=== PATIENT | male | born 1955 | race Caucasian/White ===

== ENCOUNTER 2019-02-10 05:53 | Inpatient (IN) | payer OTHER ==
[~2019-02-10] VITALS: Ht 180.3 cm; Wt 92.1 kg
[2019-02-10] VITALS (38 sets, daily range): BP systolic 58–152; BP diastolic 43–86; PULSE 69–128; RESP 11–25; Ht 180.3 cm; Wt 92.1 kg
[2019-02-10] MEDS ORDERED: BUPIVACAINE 0.25%/EPI (MDV) 50 ML VIAL INJ ONE (07:09)
[2019-02-10] MEDS ORDERED: GELATIN SIZE 100 SPONGE ONE (07:09)
[2019-02-10] MEDS ORDERED: THROMBIN 5000 UNIT (RECOTHROM) VIAL ONE ×2 (07:09→12:44)
[2019-02-10] MEDS ORDERED: POLYMYXIN/BACITRACIN 1L IRRIG ONE (07:09)
[2019-02-10] MEDS ORDERED: HEPARIN 1000 UNITS/ML 10 ML INJ ONE (07:09)
[2019-02-10] MEDS ORDERED: LACTATED RINGER'S 1,000 ML IV SCH (07:30)
[2019-02-10] MEDS ORDERED: LIDOCAINE 2% (SDV) 5 ML INJ ONE (07:49)
[2019-02-10] MEDS ORDERED: PROPOFOL 20 ML ONE (07:49)
[2019-02-10] MEDS ORDERED: ROCURONIUM 50 MG INJ ONE ×2 (07:49→08:00)
[2019-02-10] MEDS ORDERED: DESFLURANE 15 MIN ONE (07:49)
[2019-02-10] MEDS ORDERED: CEFAZOLIN 1 GM INJ ONE ×2 (08:00→14:43)
[2019-02-10] MEDS ORDERED: HYDROmorphONE 1 MG/5 ML IV SYRINGE IV PRN ×3 (08:00)
[2019-02-10] MEDS ORDERED: ONDANSETRON 4 MG INJ ONE (08:00)
[2019-02-10] MEDS ORDERED: DEXAMETHASONE 4 MG/ML 5 ML INJ ONE (08:00)
[2019-02-10] MEDS ORDERED: HEMOSTATIC MATRIX SYG ZFS ONE ×3 (09:01→16:10)
[2019-02-10] MEDS ORDERED: HYDROmorphONE 2 MG/ML SYG ONE (09:31)
[2019-02-10] MEDS ORDERED: FENTAnyl 50 MCG/ML VIAL ONE (13:59)
[2019-02-10] MEDS ORDERED: METOPROLOL 5 MG INJ ONE (17:26)
[2019-02-10] MEDS ORDERED: ACETAMINOPHEN 325 MG TAB PO PRN (17:30)
[2019-02-10] MEDS ORDERED: HYDROCODONE/APAP (5/325) TAB PO PRN (17:30)
[2019-02-10] MEDS ORDERED: NALOXONE (0.4 MG/ML) INJ IV PRN (17:30)
[2019-02-10] MEDS ORDERED: PROCHLORPERAZINE 10 MG TAB PO PRN (17:30)
[2019-02-10] MEDS ORDERED: AL HYDROX/MG HYDROX/SIMETH 30 ML CUP PO PRN (17:30)
[2019-02-10] MEDS ORDERED: ONDANSETRON 4 MG INJ IV PRN (17:30)
[2019-02-10] MEDS ORDERED: NACL 0.9% 3 ML SYG IV SCH (17:30)
[2019-02-10] MEDS: CEFAZOLIN 1 GM/50 ML (PMX) 50 ML IVPB SCH ×2 (17:40→22:57)
[2019-02-10] MEDS ORDERED: SOD CHLORIDE 0.9% 1,000 ML IV SCH ×2 (18:00→20:00)
[2019-02-10] MEDS ORDERED: METOPROLOL 5 MG INJ IV ONE (18:00)
[2019-02-10] MEDS: HYDROmorphONE 0.2 MG/ML PCA IV SCH ×2 (18:05→22:48)
[2019-02-10] MEDS: ALBUTEROL/IPRATROPIUM (NEB) 3 ML AMP HHN SCH (20:00)
[2019-02-11] VITALS: BP 107/59; PULSE 100; RESP 17
[2019-02-11 00:25] VITALS: BP 130/80; PULSE 100; RESP 19
[2019-02-11] MEDS: ALBUTEROL/IPRATROPIUM (NEB) 3 ML AMP HHN SCH ×4 (04:22→20:09)
[2019-02-11] MEDS: CEFAZOLIN 1 GM/50 ML (PMX) 50 ML IVPB SCH ×2 (05:37→12:44)
[2019-02-11 07:45] VITALS: BP 117/64; PULSE 93; RESP 18
[2019-02-11] MEDS: DOCUSATE SODIUM 100 MG CAP PO SCH ×2 (08:35→21:52)
[2019-02-11] MEDS: SOD CHLORIDE 0.9% 1,000 ML IV SCH ×3 (08:36→20:38)
[2019-02-11] MEDS ORDERED: HYDROmorphONE 0.5 MG/0.5 ML SYG IV PRN (12:30)
[2019-02-11] MEDS ORDERED: SOD CHLORIDE 0.9% 100 ML ONE (15:08)
[2019-02-11] MEDS ORDERED: IOHEXOL 100 ML ONE (15:08)
[2019-02-11 15:26] VITALS: BP 118/60; PULSE 106; RESP 20
[2019-02-11 17:17] VITALS: BP 134/63; PULSE 112
[2019-02-11] MEDS: HYDROCODONE/APAP (5/325) TAB PO PRN ×2 (17:46→21:54)
[2019-02-11] MEDS: METOPROLOL (XL) 25 MG TAB PO SCH ×2 (17:47→21:52)
[2019-02-11 20:22] VITALS: BP 125/65; PULSE 117; RESP 19
[2019-02-12] MEDS: ALBUTEROL/IPRATROPIUM (NEB) 3 ML AMP HHN SCH ×4 (01:48→20:54)
[2019-02-12] MEDS: HYDROCODONE/APAP (5/325) TAB PO PRN ×5 (01:52→20:18)
[2019-02-12] MEDS: SOD CHLORIDE 0.9% 1,000 ML IV SCH ×3 (02:18→15:12)
[2019-02-12 02:25] VITALS: BP 109/58; PULSE 93; RESP 18
[2019-02-12 07:34] VITALS: BP 119/60; PULSE 84; RESP 18
[2019-02-12] MEDS ORDERED: FLU VACC QS 2019-20 (6MOS UP) 0.5 ML SYG IM* ONE (08:30)
[2019-02-12] MEDS: METOPROLOL (XL) 25 MG TAB PO SCH ×2 (09:24→20:19)
[2019-02-12] MEDS: DOCUSATE SODIUM 100 MG CAP PO SCH ×2 (09:24→20:18)
[2019-02-12] MEDS: NICOTINE (21 MG/24 HR) PATCH TRANSDERM SCH (09:26)
[2019-02-12 14:31] VITALS: BP 111/57; PULSE 101; RESP 18
[2019-02-12 20:00] VITALS: BP 131/66; PULSE 108; RESP 18
[2019-02-13 01:28] VITALS: BP 141/75; PULSE 92; RESP 18
[2019-02-13] MEDS: ALBUTEROL/IPRATROPIUM (NEB) 3 ML AMP HHN SCH ×4 (01:56→20:33)
[2019-02-13] MEDS: HYDROCODONE/APAP (5/325) TAB PO PRN ×4 (02:12→23:41)
[2019-02-13 07:41] VITALS: BP 131/77; PULSE 86; RESP 18
[2019-02-13] MEDS: DOCUSATE SODIUM 100 MG CAP PO SCH ×2 (07:48→20:31)
[2019-02-13] MEDS: METOPROLOL (XL) 25 MG TAB PO SCH ×2 (07:49→20:32)
[2019-02-13] MEDS: NICOTINE (21 MG/24 HR) PATCH TRANSDERM SCH (07:50)
[2019-02-13] MEDS: SOD CHLORIDE 0.9% 1,000 ML IV SCH (09:09)
[2019-02-13 15:29] VITALS: BP 115/76; PULSE 77; RESP 20
[2019-02-13] MEDS ORDERED: LACTULOSE 30ML CUP PO ONE (15:30)
[2019-02-13 20:20] VITALS: BP 127/64; PULSE 93; RESP 20
[2019-02-14] MEDS: ALBUTEROL/IPRATROPIUM (NEB) 3 ML AMP HHN SCH ×2 (01:18→08:01)
[2019-02-14 02:35] VITALS: BP 130/66; PULSE 90; RESP 20
[2019-02-14] MEDS: SOD CHLORIDE 0.9% 1,000 ML IV SCH (05:09)
[2019-02-14] MEDS: HYDROCODONE/APAP (5/325) TAB PO PRN ×2 (07:14→12:26)
[2019-02-14 07:27] VITALS: BP 126/78; PULSE 87; RESP 19
[2019-02-14] MEDS: NICOTINE (21 MG/24 HR) PATCH TRANSDERM SCH (08:48)
[2019-02-14] MEDS: DOCUSATE SODIUM 100 MG CAP PO SCH (08:48)
[2019-02-14] MEDS ORDERED: METOPROLOL (XL) 25 MG TAB PO SCH (09:00)
[2019-02-14] MEDS ORDERED: SOD FERRIC GLUC COMPLX 125 MG in SOD CHLORIDE 0.9% 100 ML IVPB SCH (13:00)
== END 2019-02-14 14:36 | disposition home or self-care (01) | DRG 454 ==
LOC: REC 05:53 → MS1 20:00
PROVIDERS: ADMIT Orthopaedic Surgery; ATTEND Orthopaedic Surgery
PROC: 0SG10K1 Fusion of 2 or more Lumbar Vertebral Joints with Nonautologous Tissue Substitute, Posterior Approach, Posterior Column, Open Approach (ICD-10-PCS; 2019-02-10)
PROC: 01NB0ZZ Release Lumbar Nerve, Open Approach (ICD-10-PCS; 2019-02-10)
PROC: 0SB20ZZ Excision of Lumbar Vertebral Disc, Open Approach (ICD-10-PCS; 2019-02-10)
PROC: 0SG10AJ Fusion of 2 or more Lumbar Vertebral Joints with Interbody Fusion Device, Posterior Approach, Anterior Column, Open Approach (ICD-10-PCS; principal; 2019-02-10 07:30)
DX: M48.062 Spinal stenosis, lumbar region with neurogenic claudication (principal); D62 Acute posthemorrhagic anemia; M43.16 Spondylolisthesis, lumbar region; M54.16 Radiculopathy, lumbar region; F17.200 Nicotine dependence, unspecified, uncomplicated; E78.5 Hyperlipidemia, unspecified; R00.0 Tachycardia, unspecified; M79.18 Myalgia, other site; Z86.19 Personal history of other infectious and parasitic diseases
CPT/HCPCS: 71275; 72114; 80048; 82728; 83540; 83735; 84100; 85014; 85018; 85025; 86703; 86803; 86850; 86900; 86901; 87086; 87340; 88304; 90686; 93005; 94640; 94664; 97110; 97116; 97161; 97530; C1713; J0690; J1100; J1170; J1644; J2405; J2916; J3010; J7030; L0639; Q9967